=== PATIENT | male | born 1970 | race Caucasian/White ===

== ENCOUNTER 2017-07-01 13:24 | Emergency (ER) | payer OTHER ==
[~2017-07-01] VITALS: Ht 167.6 cm; Wt 78.0 kg
[~2017-07-01 13:24] MED LIST: ASPI81CT89 PO; CILO100T13 PO; GABA300C PO; HUM7525 SUBQ; INSU100S22 SUBQ; LISI10TA11 PO; LORA-476 PO; TRAM50TA1 PO; ZOLP10TA1 PO
[2017-07-01 13:36] VITALS: BP 159/97
--- NOTE | 2017-07-01 13:40 | NUR ---
Patient ambulated to bed 8. RN evaluating patient at bedside.
--- NOTE | 2017-07-01 13:42 | NUR ---
46/M C/O FREQUENCY URINATION,THRISTY & GENERAL WEAKNESS & PAIN TO FEET X 2 WKS. HX OF DM, NEUROPHATY, HTN & HYPERLIPIDEMIA. DENIES N/V/D; SKIN IS PINK/WARM/DRY; AAOX4 WITH EVEN AND STEADY GAIT; LUNGS CLEAR BL; HR EVEN AND REGULAR; PT DENIES ANY FEVER, CP, SOB, OR COUGH AT THIS TIME; PATIENT STATES PAIN OF 0/10 AT THIS TIME;PATIENT POSITIONED FOR COMFORT; HOB ELEVATED; BEDRAILS UP X2; BED DOWN. ER MD MADE AWARE OF PT STATUS.
[2017-07-01] MEDS ORDERED: NACL 0.9% 1,000 ML IV ONE (13:45)
[2017-07-01] MEDS ORDERED: KETOROLAC 30 MG/ML VIAL IVP ONE (13:50)
[2017-07-01 14:14] LABS: HEMATOCRIT 44.7 % (36-52); HEMOGLOBIN 15.2 g/dL (12.0-18.0); MEAN CORPUSCULAR HEMOGLOBIN 30 pg (27-31); MEAN CORPUSCULAR HGB CONC 34 g/dL (33-37); MEAN CORPUSCULAR VOLUME 89 fL (80-94); PLATELET COUNT (AUTO) 207 K/uL (140-450); RED BLOOD CELL COUNT(AUTO) 5.02 MIL/uL (4.20-6.10); RED CELL DISTRIBUTION WIDTH 11.5 % (11.6-13.7); WHITE BLOOD COUNT (AUTO) 6.2 K/uL (4.8-10.8)
--- NOTE | 2017-07-01 14:21 | NUR ---
Patient being evaluated by DR SIMS at bedside.
[2017-07-01 14:34] LABS: ALBUMIN 3.7 g/dL (3.4-5.0); ANION GAP 5.8 (8-16); CREATININE 1.3 mg/dL (0.7-1.3); POTASSIUM 3.8 mmol/L (3.5-5.1); TOTAL BILIRUBIN 0.3 mg/dL (0.0-1.0)
[2017-07-01 14:36] LABS: EOSINOPHILS % (MANUAL) 1 % (0-4); LYMPHOCYTES % (MANUAL) 39 % (20-46); MONOCYTES % (MANUAL) 5 % (5-12)
--- NOTE | 2017-07-01 14:36 | NUR ---
Patient appears to be resting comfortably in bed. BP 174/95, 90/ MINS, Respirations even and unlabored. PAIN BLL 02/18. NOTIFIED DR SIMS. WILL CONTINUE TO MONITOR.
[2017-07-01 15:04] VITALS: BP 157/96
--- NOTE | 2017-07-01 15:04 | NUR ---
Patient discharged with BP157/96; DENIES HEADACHE OR DIZZINESS AT THIS TIME, MD STREETER AWARE. Written and verbal after care instructions given and explained. Patient alert, oriented and verbalized understanding of instructions. Ambulatory with steady gait. All questions addressed prior to discharge. ID band removed. Patient advised to follow up with PMD. Rx of NORCO given. Patient educated on indication of medication including possible reaction and side effects. Opportunity to ask questions provided and answered.
== END 2017-07-01 15:04 | disposition home or self-care (01) ==
LOC: MED 13:24
DX: E11.40 Type 2 diabetes mellitus with diabetic neuropathy, unspecified (principal); I10 Essential (primary) hypertension; F17.210 Nicotine dependence, cigarettes, uncomplicated; Z79.82 Long term (current) use of aspirin; Z79.4 Long term (current) use of insulin; Z79.899 Other long term (current) drug therapy; Z90.89 Acquired absence of other organs
CPT/HCPCS: 36415; 80053; 81002; 85025; 96361; 96374; 99284; J1885; J7030